=== PATIENT | male | born 1990 | race American Indian/Alaskan Native ===

== ENCOUNTER 2019-10-08 17:29 | Emergency (ER) | payer MEDICARE ==
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
== END 2019-10-08 17:40 | disposition left against medical advice (07) ==
LOC: DL.ED 17:29
DX: S01.21XA Laceration without foreign body of nose, initial encounter (principal); Y04.0XXA Assault by unarmed brawl or fight, initial encounter
CPT/HCPCS: 99282